=== PATIENT | female | born 1965 | race African-American/Black ===

== ENCOUNTER 2017-10-14 07:43 | Outpatient (CLI) | payer OTHER | END 2017-10-14 07:44 | disposition home or self-care (01) | LOC: BICMAMMO 07:43 | PROVIDERS: ATTEND Obstetrics & Gynecology | DX: Z12.31 Encounter for screening mammogram for malignant neoplasm of breast (principal) | CPT/HCPCS: 77063; 77067 ==

== ENCOUNTER 2017-11-21 15:42 | Outpatient (CLI) | payer OTHER ==
[2017-11-21 16:20] LABS: Hemoglobin 12.8 g/dL (12.0-16.0); Mean Corpuscular HGB CONC 35.2 g/dL (32.0-36.0); Mean Corpuscular Hemoglobin 31.7 pg (27.0-31.0); Mean Corpuscular Volume 90.1 fL (78.0-98.0); Mean Platelet Volume 7.8 fL (7.4-10.4); Platelet Count 227 thou/uL (130-400); RBC Distribution Width 11.2 % (11.5-14.5); Red Blood Cell (RBC) Count 4.04 mill/uL (4.20-5.40); White Blood Cell (WBC) Count 5.9 thou/uL (4.8-10.8)
[2017-11-21 16:39] LABS: Anion Gap 13 mmol/L (10-20); BUN (Urea Nitrogen) 10 mg/dL (9.8-20.1); Calc. Creatinine Clearance 0 mL/min (70-130); Calcium 9.2 mg/dL (7.8-10.44); Carbon Dioxide 24 mmol/L (22-29); Chloride 106 mmol/L (98-107); Estimated GFR-MDRD 86; Glucose 90 mg/dL (70-105); Sodium 139 mmol/L (136-145)
== END 2017-11-21 15:43 | disposition home or self-care (01) ==
LOC: LABBT 15:42
PROVIDERS: ATTEND Obstetrics & Gynecology
DX: Z01.812 Encounter for preprocedural laboratory examination (principal); N70.11 Chronic salpingitis; R10.2 Pelvic and perineal pain
CPT/HCPCS: 80048; 85027; 86850; 86900; 86901

== ENCOUNTER 2017-11-22 11:21 | Day surgery (SDC) | payer OTHER ==
[2017-11-21 16:12] VITALS: BMI 30.4
--- NOTE | 2017-11-22 01:00 | HP ---
Scheduled for surgery on 11/22/2017 HISTORY OF PRESENT ILLNESS: Ms. Graves is a 52-year-old -[place] female with a history of pre vious vaginal hysterectomy for carcinoma in situ of the cervix, who was seen at her annual exam in . She has been having intermittent left lower quadrant pain and at that time described it sharp and painful at times and not associated with her bowel movements. It was described as coming and go ing. She had no symptoms and reports a normal colonoscopy 1 year prior. She still has her ovarie s. 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 Right ovary was normal at 2.62 x 1.73 cm and she had a left o vary seen with a 4 cm left hydrosalpinx of the fallopian tube. No free fluid was noted. The patient was originally told to observe for any further pain, episodes with sometimes the hydrosal pinx can intermittently tors on itself. She has been having recurring issues with this and now is el ecting to have surgical removal. PAST MEDICAL HISTORY: As noted vaginal hysterectomy in 1992 for severe cervical dysplasia, she had 2 vaginal deliveries, is a . She has benign essential hypertension, followed by Dr. Jina Zapata. Hypothyroidism, GERD, and hyperlipidemia. CURRENT MEDICATIONS: Dexilant 60 mg daily, furosemide 20 mg daily, levothyroxine 50 mcg daily, metop rolol 25 mg daily, potassium citrate 10 mEq daily, simvastatin 80 mg tablets daily. SOCIAL HISTORY: She is non-smoker, minimal alcohol use. She works fulltime. ALLERGIES: HYDROCODONE AND PREDNISONE. FAMILY HISTORY: Essential hypertension and hyperlipidemia in her father and lung cancer in her mothe r and diabetes in her father. PHYSICAL EXAMINATION: VITAL SIGNS: Her blood pressure 116/78, pulse regular at 75, respirations are 18, height 68.5 inches , 201 pounds, BMI of 30. GENERAL: A well-developed, well-nourished -[place] female, in no acute distress. CHEST: Clear to auscultation. HEART: Regular rate and rhythm. S1 and S2, heart sounds, no murmurs, rubs, or gallops. NECK: Supple, no thyromegaly or masses. BREASTS: No masses, nipple discharge, or skin changes. ABDOMEN: Soft, nontender, nondistended with no palpable masses. PELVIC EXAM: Vulva and vagina had no lesions. Vaginal cuff was intact. Cervix was absent surgicall y. Uterine adnexa were small and nontender with no masses. ASSESSMENT: This is a 52-year-old -[place] female with intermittent left lower quadrant pain with a 4 cm hydrosalpinx on the left adnexal structure. She has been having intermittent sharp pain s in this area that come and go and most likely this is related to intermittent torsion of the hydros alpinx. She is now desiring surgical removal due to increasing recurrence of the pain. PLAN: Proceed with laparoscopic left salpingo-oophorectomy, scheduled for 11/22/2017 day surgery pro cedjuanita. Risks and benefits of procedure I have discussed in detail. She is set for surgery.
[2017-11-22] MEDS ORDERED: Fentanyl 100 MCG/2 ML VIAL ONE ×2 (12:14→15:27)
[2017-11-22] MEDS ORDERED: Gabapentin 300 MG CAP ONE (12:15)
[2017-11-22] MEDS ORDERED: Famotidine/PF 20 mg/2ml Vial ONE (12:15)
[2017-11-22] MEDS ORDERED: CeleCOXIB 100 MG CAP ONE (12:15)
[2017-11-22] MEDS ORDERED: CEFAZOLIN/Water 2 GM/20 ML SYRINGE ONE (12:15)
[2017-11-22] MEDS ORDERED: Bupivacaine HCl 0.5%/Epinephrine 1:200,000/PF 30 ml Vial ONE (12:18)
[2017-11-22] MEDS ORDERED: Scopolamine 1.5 mg/72 hour Patch ONE (12:37)
[2017-11-22] MEDS ORDERED: Dexamethasone 20 MG/5 ML VIAL ONE (13:36)
[2017-11-22] MEDS ORDERED: Ondansetron HCl/PF 4 MG/2 ML Vial ONE ×2 (13:36→16:26)
[2017-11-22] MEDS ORDERED: Lidocaine 1% PF 5 ML VIAL ONE (13:36)
[2017-11-22] MEDS ORDERED: Glycopyrrolate 0.2 MG/ML 5 ML SYRINGE ONE (13:36)
[2017-11-22] MEDS ORDERED: PROPOFOL 200 MG/20 ML VIAL ONE (13:36)
[2017-11-22] MEDS ORDERED: Ketorolac Tromethamine 30 MG/ML VIAL ONE (13:36)
--- NOTE | 2017-11-22 16:53 | OP ---
DATE OF SURGERY: 11/22/2017 PREOPERATIVE DIAGNOSES: 1. A 52-year-old -Faro[place] female with prior hysterectomy with recurrent left lower quadrant pain. 2. A 4 cm left hydrosalpinx noted. POSTOPERATIVE DIAGNOSES: 1. A 52-year-old -[place] female with prior hysterectomy with recurrent left lower quadrant pain. 2. A 4 cm left hydrosalpinx noted. 3. A 2 cm right hydrosalpinx removed. PROCEDURE PERFORMED: Laparoscopic left salpingo-oophorectomy, right salpingectomy, and hydrosalpinx. SURGEON: Romy Ramires M.D. MARKET SALES MANAGER SURGEON: Kiesha Van M.D. ANESTHESIA: General. ESTIMATED BLOOD LOSS: Less than 10 mL COMPLICATIONS: None. COUNTS: Correct x2. ANTIBIOTICS: Two grams Ancef aviation technical systems specialist to the OR. FINDINGS: 1. The patient's previous hysterectomy. She had a normal left ovary with adherent to the left 4 cm hydrosalpinx. 2. A 2 cm right hydrosalpinx with 2 cm right ovarian simple cyst, status post drainage. Pathology i s left tube and ovary and right fallopian tube. DISPOSITION: To the recovery room stable. DESCRIPTION OF OPERATIVE PROCEDURE: The patient previously received informed consent in regard to harrison rgery. She was taken back to the operating room where she received a general anesthetic agent withou t complications. She was placed in dorsal lithotomy position with use of Milad stirrups. Anderson cath eter was placed at this time to drain the bladder. A sponge stick was placed in the vagina for locat ion of the vaginal vault intraoperatively. Attention was then turned to the abdomen where perspectiv e trocar sites were infiltrated with 0.5% Marcaine with epinephrine. A 5 mm infraumbilical incision was made recent and the Veress needle was entered into the peritoneal cavity. Patient pressure was l ess than 5 mm and the abdomen was insufflated to a patient pressure of 15, approximately 4 liters car bon dioxide gas. A 5 mm trocar was then placed through the infraumbilical incision and then the lapa roscope was introduced through the trocar sleeve confirming proper entry. The pelvis was inspected w ith the previously mentioned findings and 5 mm right lower quadrant trocar was placed under laparosco pic guidance along with a left lower quadrant 5 mm trocar. The [place] LigaSure was then utilized a s my producer assistant elevated the left adnexal structure away from the pelvic sidewall. The location of th e ureter was noted to be inferior to this area for planned excision. The LigaSure device was then ut ilized to ligate and transect the left infundibulopelvic ligament in a layering technique, the hydros alpinx that was adherent to the pelvic sidewall was dissected sharply away from the pelvic sidewall. This allowed further mobilization of the hydrosalpinx along with the left adnexal structure and then this was coagulated and transected. The specimen was placed in the posterior cul-de-sac. The right fallopian tube was noted to have a 2 cm right hydrosalpinx and then the edge of the fallopian tube w as grasped by my producer assistant and the fallopian tube on the mesosalpinx border was coagulated and transe cted with the LigaSure device placing the specimen in the posterior cul-de-sac. There was a simple c yst on the right ovary, which was incised and drained clear fluid. An additional [address] d in the suprapubic midline under direct visualization. The 10 mm Endobag was placed and the specime n was placed in the Endobag. The specimen was then pulled up to the anterior abdominal wall and was removed in a piecemeal fashion. The bag did open some and the remainder of the tissue was grasped an d pulled through the incision site with atraumatic grasper in its entirety. The pelvis was irrigated and suctioned and pedicle sites were noted be hemostatic. The excess carbon dioxide gas was release d from the abdomen. Trocar sleeves were removed. The trocar sites were closed with 4-0 Monocryl sub cuticular fashion with Dermabond. The vaginal sponge stick was removed.
== END 2017-11-22 17:35 | disposition home or self-care (01) ==
LOC: SDC 11:21
PROVIDERS: ATTEND Obstetrics & Gynecology
PROC: 0UT74ZZ Resection of Bilateral Fallopian Tubes, Percutaneous Endoscopic Approach (ICD-10-PCS; principal; 2017-11-22)
PROC: 0UT14ZZ Resection of Left Ovary, Percutaneous Endoscopic Approach (ICD-10-PCS; principal; 2017-11-22)
DX: N83.312 Acquired atrophy of left ovary (principal); N70.11 Chronic salpingitis; I10 Essential (primary) hypertension; E03.9 Hypothyroidism, unspecified; E78.5 Hyperlipidemia, unspecified; K21.9 Gastro-esophageal reflux disease without esophagitis; Z79.82 Long term (current) use of aspirin; Z79.899 Other long term (current) drug therapy; Z88.5 Allergy status to narcotic agent; Z88.8 Allergy status to other drugs, medicaments and biological substances; Z90.710 Acquired absence of both cervix and uterus
CPT/HCPCS: 80048; 85027; 86850; 86900; 86901; 88305; 96374; 96375; J0670; J1100; J1885; J2001; J2405; J2704; J3010; S0028

== ENCOUNTER 2018-01-05 10:13 | Outpatient (CLI) | payer OTHER | END 2018-01-05 10:14 | disposition home or self-care (01) | LOC: BICRAD 10:13 | PROVIDERS: ATTEND Internal Medicine | DX: M54.5 Low back pain (principal); M25.562 Pain in left knee; M47.896 Other spondylosis, lumbar region; M25.862 Other specified joint disorders, left knee; M25.78 Osteophyte, vertebrae | CPT/HCPCS: 72100; 80048; 83735 ==

== ENCOUNTER 2018-01-13 09:39 | Outpatient (CLI) | payer OTHER ==
--- NOTE | 2018-01-13 14:04 | NM ---
BONE SCAN: HISTORY: Pain. Abnormal left knee radiograph. DOSE: 32.6 mCi of Technetium 99m-MDA. FINDINGS: Anterior and posterior whole body delayed images obtained. Images demonstrate an area of increased activity involving the proximal left tibial metaphysis. This correlates with the plain film radiographs. I cannot exclude the possibility metastatic disease. O ther possibilities could include Paget's disease. Correlation with MRI of the left knee and proximal tibia may be of use with and without contrast. IMPRESSION: Area of increased activity in the proximal left tibia. Malignancy cannot be excluded. POS: [facility]
--- NOTE | 2018-01-13 15:04 | RAD ---
RIGHT KNEE 4 VIEWS: HISTORY: Pain and swelling. Correlate with bone scan. FINDINGS: Bone scan from earlier today revealed abnormal activity in the proximal left tibia. FINDINGS: The right knee appears unremarkable. Medial and lateral joint spaces appear normal. Minimal degener ative spurring. No osseous abnormality or joint effusion apparent. IMPRESSION: Unremarkable right knee. POS: [facility]
== END 2018-01-13 09:40 | disposition home or self-care (01) ==
LOC: NM 09:39
PROVIDERS: ATTEND Internal Medicine
DX: R93.7 Abnormal findings on diagnostic imaging of other parts of musculoskeletal system (principal)
CPT/HCPCS: 78306; A9503

== ENCOUNTER 2018-01-24 07:39 | Outpatient (CLI) | payer OTHER ==
--- NOTE | 2018-01-24 10:39 | MRI ---
MRI OF THE LEFT PROXIMAL TIBIA WITH AND WITHOUT IV CONTRAST: INDICATION: History of bone lesion within the proximal tibia with an abnormal bone scan. CONTRAST: 19 cc of MultiHance was utilized for the examination. TECHNIQUE: Multiplanar, multisequence MR images were obtained of the left proximal foreleg with and without IV c ontrast. COMPARISON: Comparisons are made with left knee radiograph dated 01/05/18, right knee radiograph dated 01/13/18, an d a bone scan dated 01/13/18. FINDINGS: Corresponding to the sclerotic lesion of the proximal tibial metadiaphyseal region, that demonstrated both cortical and trabecular bone thickening as well as expansion of the metadiaphyseal region on th e comparison radiograph, is a poorly marginated lesion of retained fatty marrow signal and slightly p rominent vascularity within the region of the proximal posterior tibial nutrient foramina. No enhanc ing, aggressive-appearing soft tissue mass is seen within this lesion of the proximal tibial metadiap hyseal region. There is some enhancement of the mildly prominent vascularity within the intramedulla ry canal related to the posterior aspect of the lesion. No destructive osteolysis or periosseous sof t tissue mass is evident. No muscular edema is seen within the proximal tibia. No malina periosteal reaction is grossly evident. There is a small-sized semimembranosus-medial gastrocnemius popliteal c yst. No definite enlarged lymph nodes are seen within the visualized aspects of the popliteal fossa. IMPRESSION: 1. Overall, the proximal tibial lesion is suspicious for a benign entity such as Paget disease. The re are changes of cortical and trabecular bone thickening with expansion on the comparison radiograph . There is maintenance of the normal fatty marrow on the MRI evaluation without associated aggressiv e enhancing soft tissue mass. Other differential considerations would include an atypical fibrous dy splasia which is felt to be less likely. Would recommend continued followup with radiograph. 2. Small Darden's cyst. POS: [facility]
== END 2018-01-24 07:40 | disposition home or self-care (01) ==
LOC: BICMRI 07:39
PROVIDERS: ATTEND Orthopaedic Surgery
DX: M89.9 Disorder of bone, unspecified (principal); R22.42 Localized swelling, mass and lump, left lower limb; M71.22 Synovial cyst of popliteal space [Baker], left knee

== ENCOUNTER 2018-02-28 06:43 | Outpatient (CLI) | payer OTHER ==
--- NOTE | 2018-02-28 09:27 | ULT ---
ULTRASOUND THYROID: History: Thyroid nodule. Comparison: None. FINDINGS: The isthmus measures 4 mm in AP imaging. Right lobe measures 4 x 1.6 x 1.8 cm and left lobe measures 4.7 x 1.4 x 1.4 cm. Normal background vas cularity. Small colloid cyst, 3 mm, interpolar right lobe. No left sided thyroid nodule. IMPRESSION: Normal exam. POS: [facility]
== END 2018-02-28 06:44 | disposition home or self-care (01) ==
LOC: BICULT 06:43
PROVIDERS: ATTEND Internal Medicine
DX: E04.1 Nontoxic single thyroid nodule (principal)
CPT/HCPCS: 76536

== ENCOUNTER 2018-07-10 07:44 | Outpatient (CLI) | payer OTHER ==
--- NOTE | 2018-07-10 09:15 | BD ---
BONE DENSITOMETRY: Date: HISTORY: 53-year-old female for postmenopausal osteoporosis screening. FINDINGS: Lumbar Spine: BMD (g/cm2) L1 1.027 T-Score: 0.3 L2 1.232 T-Score: 1.9 L3 1.181 T-Score: 0.9 L4 1.167 T-Score: 1.0 L1-L4 1.153 T-Score: 1.0 Femoral Neck: 0.773 T-Score: -0.7 Total Femur: 1.057 T-Score: 0.9 IMPRESSION: Bone mineral density of the lumbar spine and femoral neck are within normal range. POS: [facility]
== END 2018-07-10 07:45 | disposition home or self-care (01) ==
LOC: BICMAMMO 07:44
PROVIDERS: ATTEND Internal Medicine
DX: Z13.820 Encounter for screening for osteoporosis (principal); Z78.0 Asymptomatic menopausal state
CPT/HCPCS: 77080

== ENCOUNTER 2020-04-15 13:54 | Outpatient (CLI) | payer OTHER ==
--- NOTE | 2020-04-15 14:45 | RAD ---
EXAM: XR Lumbar Spine 2 Or 3 View PROVIDED CLINICAL HISTORY: Low back pain. Tingling all over body. COMPARISON: 01/05/2018 FINDINGS: There are 5 nonrib-bearing lumbar-type vertebral bodies. The vertebral body heights are within normal limits. There has been interval development of decrease in height loss involving the L3-4 and L4-5 intervertebral discs. There is trace grade 1 anterolisthesis of L4 on L5 which was not present on sadie or exam. This is likely due to facet degenerative changes present in the lower lumbar spine. Vertebral body heights are within normal limits, and no fracture is seen. No other interval change. IMPRESSION: Degenerative changes involving the lower lumbar spine which have progressed from prior study. There i s trace grade 1 anterolisthesis of L4 on L5.
--- NOTE | 2020-04-15 14:47 | RAD ---
EXAM: XR Cerv Sp Ap Lat STANDARD PROVIDED CLINICAL HISTORY: Neck and low back pain. Tingling all over body. COMPARISON: None FINDINGS: C1 to the cervicothoracic junction are seen on the lateral and swimmer's views of the cervical spine. There is straightening of the normal cervical lordotic curvature which may be related to muscle spasm or positioning. The vertebral body heights and intervertebral disc spaces are within normal hwang its. No fracture or subluxation is seen. Scattered anterior osteophytes are seen. Prevertebral soft tissues have a normal appearance. Mild degenerative changes are seen in the visualized upper thoracic spine. IMPRESSION: Mild degenerative changes in cervical spine without fracture or subluxation appreciated.
== END 2020-04-15 13:55 | disposition home or self-care (01) ==
LOC: BICRAD 13:54
PROVIDERS: ATTEND Internal Medicine
DX: M54.5 Low back pain (principal); M54.2 Cervicalgia; M47.812 Spondylosis without myelopathy or radiculopathy, cervical region; M47.816 Spondylosis without myelopathy or radiculopathy, lumbar region
CPT/HCPCS: 72040; 72100

== ENCOUNTER 2020-10-22 10:36 | Outpatient (CLI) | payer OTHER | END 2020-10-22 10:37 | disposition home or self-care (01) | LOC: NM 10:36 | PROVIDERS: ATTEND Internal Medicine Rheumatology | DX: M88.9 Osteitis deformans of unspecified bone (principal); R94.8 Abnormal results of function studies of other organs and systems | CPT/HCPCS: 78306; A9503 ==

== ENCOUNTER 2021-03-23 12:32 | Outpatient (CLI) | payer OTHER | END 2021-03-23 12:33 | disposition home or self-care (01) | LOC: ULT 12:32 | PROVIDERS: ATTEND Internal Medicine | DX: E04.1 Nontoxic single thyroid nodule (principal) | CPT/HCPCS: 76536 ==

== ENCOUNTER 2021-03-23 13:02 | Outpatient (CLI) | payer OTHER | END 2021-03-23 13:03 | disposition home or self-care (01) | LOC: BICRAD 13:02 | PROVIDERS: ATTEND Internal Medicine | DX: M54.9 Dorsalgia, unspecified (principal); M19.90 Unspecified osteoarthritis, unspecified site; M19.072 Primary osteoarthritis, left ankle and foot; M16.0 Bilateral primary osteoarthritis of hip | CPT/HCPCS: 72202 ==

== ENCOUNTER 2021-11-05 07:28 | Outpatient (CLI) | payer OTHER | END 2021-11-05 07:29 | disposition home or self-care (01) | LOC: NM 07:28 | PROVIDERS: ATTEND Internal Medicine Rheumatology | DX: M88.9 Osteitis deformans of unspecified bone (principal) | CPT/HCPCS: 78306; A9503 ==

== ENCOUNTER 2022-12-14 09:28 | Outpatient (CLI) | payer OTHER | END 2022-12-14 09:29 | disposition home or self-care (01) | LOC: RAD 09:28 | PROVIDERS: ATTEND Internal Medicine | DX: I10 Essential (primary) hypertension (principal) | CPT/HCPCS: 71046 ==

== ENCOUNTER 2023-01-07 12:04 | Outpatient (CLI) | payer OTHER | END 2023-01-07 12:05 | disposition home or self-care (01) | LOC: BICULT 12:04 | PROVIDERS: ATTEND Internal Medicine | DX: R22.43 Localized swelling, mass and lump, lower limb, bilateral (principal); M79.661 Pain in right lower leg; M79.662 Pain in left lower leg | CPT/HCPCS: 93970 ==

== ENCOUNTER 2023-04-06 07:58 | Outpatient (CLI) | payer OTHER | END 2023-04-06 07:59 | disposition home or self-care (01) | LOC: BICRAD 07:58 | PROVIDERS: ATTEND Internal Medicine | DX: M16.0 Bilateral primary osteoarthritis of hip (principal); M47.816 Spondylosis without myelopathy or radiculopathy, lumbar region; M89.8X6 Other specified disorders of bone, lower leg | CPT/HCPCS: 72100; 73522 ==

== ENCOUNTER 2023-06-23 07:25 | Outpatient (CLI) | payer OTHER | END 2023-06-23 07:26 | disposition home or self-care (01) | LOC: ULT 07:25 | PROVIDERS: ATTEND Physician Assistant Medical | DX: K62.5 Hemorrhage of anus and rectum (principal); K59.09 Other constipation; R10.13 Epigastric pain; K76.0 Fatty (change of) liver, not elsewhere classified | CPT/HCPCS: 76700 ==